=== PATIENT | female | born 1995 | race Two or more races ===

== ENCOUNTER 2018-01-26 11:30 | Emergency (ER) | payer SELFPAY ==
[~2018-01-26] VITALS: Ht 154.9 cm; Wt 70.3 kg
[~2018-01-26 11:30] MED LIST: IBUP-1222 PO; PRENATAL
[2018-01-26 11:46] VITALS: BP 147/78
[2018-01-26] MEDS ORDERED: PHENAZOPYRIDINE 200 MG TABLET PO ONE (12:30)
[2018-01-26] MEDS ORDERED: PHENAZOPYRIDINE 200 MG TABLET ONE (13:12)
[2018-01-26 13:19] LABS: HCG UR SG 1.027 (1.003-1.030); MICROSCOPIC AUTO
[2018-01-26 13:20] LABS: CULTURE INDICATED? YES
== END 2018-01-26 13:59 | disposition home or self-care (01) ==
LOC: ED 12:41
DX: N30.00 Acute cystitis without hematuria (principal)
CPT/HCPCS: 81001; 81025; 87077; 87086; 87186; 99284

== ENCOUNTER 2018-03-14 15:45 | Emergency (ER) | payer SELFPAY ==
[~2018-03-14] VITALS: Ht 154.9 cm; Wt 67.9 kg
[2018-03-14 16:28] LABS: BASOPHILS # (AUTO) 0.02 x10^3/uL (0-0.1); BASOPHILS % (AUTO) 0 % (0-1); EOSINOPHILS # (AUTO) 0.09 x10^3/uL (0-0.4); EOSINOPHILS % (AUTO) 1 % (1-7); LYMPHOCYTES # (AUTO) 2.04 x10^3/uL (1-3.4); LYMPHOCYTES % (AUTO) 27 % (22-44); MD NO; MEAN CORPUSCULAR HEMOGLOBIN 30.8 pg (27.0-34.8); MEAN CORPUSCULAR HGB CONC 33.5 g/dL (32.4-35.8); MEAN CORPUSCULAR VOLUME 92.1 fL (80-100); MEAN PLATELET VOLUME 8.3 fL (7.4-10.4); MONOCYTES # (AUTO) 0.69 x10^3/uL (0.2-0.8); MONOCYTES % (AUTO) 9 % (2-9); NEUTROPHILS # (AUTO) 4.87 x10^3/uL (1.8-6.8); NEUTROPHILS % (AUTO) 63 % (42-75); PLATELET COUNT 280 x10^3/uL (130-400); RED BLOOD COUNT 4.54 x10^6/uL (3.82-5.3); RED CELL DISTRIBUTION WIDTH 13.1 % (9.6-15.2)
[2018-03-14 16:39] LABS: ALANINE AMINOTRANSFERASE 21 U/L (12-78); ALBUMIN 3.5 g/dL (3.4-5.0); ANION GAP 4 mmol/L (5-15); CALCIUM 8.5 mg/dL (8.5-10.1); CHLORIDE 110 mmol/L (98-107); CREATININE 0.94 mg/dL (0.55-1.02)
[2018-03-14 16:44] LABS: ALKALINE PHOSPHATASE 63 U/L (45-117); BILIRUBIN,TOTAL 0.5 mg/dL (0.2-1.0); TOTAL PROTEIN 7.4 g/dL (6.4-8.2)
[2018-03-14 17:19] LABS: MICROSCOPIC INDICATED
[2018-03-14 17:20] LABS: CULTURE INDICATED? NO
[2018-03-14] MEDS ORDERED: OMNIPAQUE 350 MG/ML, 100ML BOTTLE ONE (20:44)
[2018-03-14 21:07] VITALS: BP 124/76
== END 2018-03-14 21:53 | disposition home or self-care (01) ==
LOC: ED 21:15
DX: R19.7 Diarrhea, unspecified (principal); R10.31 Right lower quadrant pain; R10.32 Left lower quadrant pain
CPT/HCPCS: 36415; 74021; 74177; 80053; 81001; 83690; 84703; 85025; 93005; 99285; Q9967